=== PATIENT | male | born 1955 | race Caucasian/White ===

== ENCOUNTER 2018-04-30 18:27 | Observation (INO) | payer OTHER ==
[2018-04-30 19:21] LABS: BASOPHILS # (AUTO) 0.1 10^3/uL (0.0-0.1); BASOPHILS % (AUTO) 1.1 %; EOSINOPHILS # (AUTO) 0.1 10^3/uL (0.0-0.7); EOSINOPHILS % (AUTO) 0.7 %; HGB - HEMOGLOBIN 13.1 g/dL (14.0-18.0); LYMPHOCYTES # (AUTO) 0.9 10^3/uL (1.5-3.5); LYMPHOCYTES % (AUTO) 8.1 %; MEAN CORPUSCULAR HEMOGLOBIN 29.8 pg (27.0-31.0); MEAN CORPUSCULAR HGB CONC 33.2 g/dL (32.0-36.0); MEAN CORPUSCULAR VOLUME 89.8 fL (80.0-94.0); MONOCYTES # (AUTO) 0.6 10^3/uL (0.0-1.0); MONOCYTES % (AUTO) 5.6 %; NEUTROPHILS # (AUTO) 8.9 10^3/uL (1.5-6.6); NEUTROPHILS % (AUTO) 84.5 %; PLT - PLATELET COUNT 170 10^3/uL (130-450); RED CELL DISTRIBUTION WIDTH 14.4 % (12.0-15.0); WHITE BLOOD COUNT 10.6 x10^3/uL (4.8-10.8)
[2018-04-30 19:32] LABS: ALBUMIN 4.6 g/dL (3.2-5.5); ALBUMIN/GLOBULIN RATIO 1.7 (1.0-2.2); ALKALINE PHOSPHATASE 59 IU/L (42-121); ALT ALANINE AMINOTRANSFERASE 25 IU/L (10-60); AST ASPARTATE AMINOTRANSFERASE 31 IU/L (10-42); BILIRUBIN,TOTAL 0.6 mg/dL (0.2-1.0); BUN - BLOOD UREA NITROGEN 21 mg/dL (6-20); CALCIUM 9.4 mg/dL (8.5-10.3); CARBON DIOXIDE - CO2 29 mmol/L (21-32); CHLORIDE 99 mmol/L (101-111); GFR - MDRD 75 (>89); GLUCOSE 111 mg/dL (70-100); LIPASE 38 U/L (22-51); SODIUM 136 mmol/L (135-145); TOTAL PROTEIN 7.3 g/dL (6.7-8.2)
--- NOTE | 2018-04-30 19:50 | CT Report ---
Procedure Date: 04/30/2018 Accession Number: [id number] / [id number] Procedure: CT - Head W/O Stroke Protocol CPT Code: FULL RESULT: EXAM: CT HEAD EXAM DATE: 04/30/2018 07:42 PM. CLINICAL HISTORY: Sudden onset of confusion. COMPARISON: None. TECHNIQUE: Multiaxial CT images were obtained from the foramen magnum to the vertex. Reformats: Coronal. IV contrast: None. In accordance with CT protocol optimization, one or more of the following dose reduction techniques were utilized for this exam: automated exposure control, adjustment of mA and/or KV based on patient size, or use of iterative reconstructive technique. FINDINGS: Parenchyma: No intraparenchymal hemorrhage. No evidence of mass, midline shift, or CT findings of acute infarction. Hernandez-white differentiation is distinct. Extraaxial Spaces: Normal for age. No subdural or epidural collections identified. Ventricles: Normal in size and position. Sinuses and Orbits: Imaged paranasal sinuses, orbits, and mastoids show no significant abnormality. Bones: No evidence of fracture or calvarial defect. Other: None. IMPRESSION: No acute intracranial abnormality. RADIA The above findings were discussed with Kar Mariscal by Dr. Dom Jordan at 19:49 hrs on 04/30/18.
--- NOTE | 2018-04-30 20:48 | XRAY Report ---
Procedure Date: 04/30/2018 Accession Number: [id number] / [id number] Procedure: XR - Chest 2 View X-Ray CPT Code: 67294 FULL RESULT: EXAM: CHEST RADIOGRAPHY EXAM DATE: 04/30/2018 08:10 PM. CLINICAL HISTORY: Confusion. COMPARISON: 11/29/2014. TECHNIQUE: 2 views. FINDINGS: Lungs/Pleura: Lungs are hyperinflated. No focal consolidation, pleural effusion or pneumothorax. Mediastinum: Heart and mediastinal contours are unremarkable. Other: Chronic mild superior compression deformities of T11 and T12 are unchanged. IMPRESSION: No acute cardiopulmonary abnormality with findings suggestive of COPD as before. RADIA
[2018-04-30] MEDS ORDERED: SODIUM CHLORIDE 0.9% 1,000 ML IV ONE (20:53)
[2018-04-30] MEDS ORDERED: IOPAMIDOL-300 100 ML VIAL ONE (21:29)
[2018-04-30] MEDS ORDERED: IOPAMIDOL-300 100 ML VIAL IVP ONE (21:57)
[2018-04-30 22:07] LABS: MUDS CUTOFF CONCENTRATIONS CUTOFF CONC BELOW:
[2018-04-30 22:09] LABS: BILIRUBIN,URINE NEGATIVE (NEGATIVE); GLUCOSE, URINE (UA) NEGATIVE (NEGATIVE); KETONES,URINE (UA) NEGATIVE (NEGATIVE); LEUKOCYTE ESTERASE, URINE NEGATIVE (NEGATIVE); NITRITE,URINE NEGATIVE (NEGATIVE); OCCULT BLOOD,URINE NEGATIVE (NEGATIVE); PROTEIN,URINE NEGATIVE (NEGATIVE); UROBILINOGEN,URINE 0.2 (NORMAL) E.U./dL (NORMAL)
[2018-04-30 22:10] LABS: CLARITY,URINE HAZY (CLEAR)
[2018-04-30 22:22] LABS: AMORPHOUS SEDIMENT,UR Moderate /LPF; BACTERIA,URINE None Seen /HPF (None Seen); RBC,URINE None Seen /HPF (0-5); SQUAMOUS EPITHELIAL CELL,UR NONE SEEN (<= Few)
[2018-04-30 22:23] LABS: AMPHETAMINE SCREEN,URINE NEGATIVE (NEGATIVE); BENZODIAZEPINES SCREEN, URINE NEGATIVE (NEGATIVE); COCAINE SCREEN URINE NEGATIVE (NEGATIVE); METHADONE SCREEN, URINE NEGATIVE (NEGATIVE); METHAMPHETAMINES SCREEN, URINE NEGATIVE (NEGATIVE); OPIATE SCREEN, URINE NEGATIVE (NEGATIVE); OXYCODONE SCREEN, URINE NEGATIVE (NEGATIVE); PROPOXYPHENE SCREEN, URINE NEGATIVE (NEGATIVE); TRICYCLIC ANTIDEPRESSANT,URINE NEGATIVE (NEGATIVE)
[2018-04-30] MEDS ORDERED: ONDANSETRON ODT 4 MG TABLET TL PRN (22:54)
[2018-04-30] MEDS ORDERED: ACETAMINOPHEN 325 MG TABLET PO PRN (22:54)
[2018-04-30] MEDS ORDERED: oxyCODONE 5 MG TABLET PO PRN (22:54)
[2018-04-30] MEDS ORDERED: ONDANSETRON 4 MG/2 ML VIAL IVP PRN (22:54)
[2018-04-30] MEDS ORDERED: SODIUM CHLORIDE FLUSH 0.9% 10 ML SYRINGE IVP PRN (22:54)
--- NOTE | 2018-04-30 22:55 | ED Physician Documentation ---
History of Present Illness - Stated complaint Stated Complaint: CONFUSION - Chief complaint Chief Complaint: Neuro - History obtained from History obtained from: Patient, Family - History of Present Illness Timing: Today - Additonal information Additional information: 62-year-old male presents the emergency department for evaluation of loss of the short-term memory. The patient's symptoms started suddenly this afternoon and was noticed by his . The patient is not aware of his short-term memory issue. The patient's long-term memory is intact. The patient has difficulty remembering just a few minutes ago the events that occurred. The patient denies headache, neck pain, vision changes, focal motor weakness, sensory changes or any other focal neurologic symptoms. Symptoms are described as moderate. No other associated symptoms. No triggering factors. No relieving factors. Review of Systems Constitutional: denies: Fever, Chills Eyes: denies: Loss of vision Ears: denies: Ear pain, Tinnitus/ringing Nose: denies: Congestion Throat: denies: Sore throat Cardiac: denies: Chest pain / pressure Respiratory: denies: Dyspnea GI: denies: Abdominal Pain : denies: Dysuria Skin: denies: Rash Musculoskeletal: denies: Neck pain Neurologic: reports: Confused. denies: Generalized weakness, Focal weakness, Numbness, Difficulty speaking, Near syncope, Headache, Head injury Immunocompromised: denies: Chemotherapy PD PAST MEDICAL HISTORY - Past Medical History Past Medical History: No - Past Surgical History Past Surgical History: No - Present Medications Home Medications: Ambulatory Orders Medication Instructions Recorded Confirmed No Known Home Medications [No 04/30/18 04/30/18 Known Home Medications] - Allergies Allergies/Adverse Reactions: Allergies Allergy/AdvReac Type Severity Reaction Status Date / Time No Known Drug Allergies Allergy Verified 11/29/14 16:24 - Social History Does the pt smoke?: No Smoking Status: Never smoker Does the pt drink ETOH?: No - Immunizations Immunizations are current?: Yes PD ED PE NORMAL - General General: Alert and oriented X 3, No acute distress - HEENT HEENT: Atraumatic, PERRL, EOMI, Ears normal - Neck Neck: Supple, no meningeal sign - Cardiac Cardiac: RRR, Strong equal pulses - Respiratory Respiratory: No respiratory distress, Clear bilaterally - Abdomen Abdomen: Normal bowel sounds, Soft - Derm Derm: Normal color - Extremities Extremities: No deformity, Normal ROM s pain - Neuro Neuro: geodetic technician 2-12 intact, No motor deficit, No sensory deficit, Normal speech - Psych Psych: Normal mood PD ED PE EXPANDED - Neuro Neuro: Alert and Oriented X 3, Confused, Normal motor, Normal Sensation, Normal Speech, Normal reflexes, CNII-XII intact, PERRL, Normal gait, Normal finger nose , Normal speech, Other (The face is symmetric, digital commentator strength equal, negative pronator drift in the upper and lower extremities). No: Aphasia, Dysarthria Results - Vitals Vitals: Vital Signs - 24 hr 04/30/18 04/30/18 04/30/18 18:44 20:40 22:04 Temperature 36.5 C 36.7 C Heart Rate 72 65 76 Respiratory 16 14 16 Rate Blood Pressure 183/83 H 164/91 H 167/84 H O2 Saturation 100 98 98 Oxygen O2 Source Room air - EKG (time done) 19: 02 Rate: Rate (enter#) Rhythm: NSR Intervals: Normal NH, QRS normal QRS: Normal Ischemia: Normal ST segments - Labs Labs: Laboratory Tests 04/30/18 04/30/18 04/30/18 19:13 19:13 19:13 WBC 10.6 RBC 4.40 L Hgb 13.1 L Hct 39.5 L MCV 89.8 MCH 29.8 MCHC 33.2 RDW 14.4 Plt Count 170 MPV 9.0 Neut # (Auto) 8.9 H Lymph # (Auto) 0.[address] [place] # (Auto) 0.6 Eos # (Auto) 0.1 Baso # (Auto) 0.1 Absolute Nucleated RBC 0.01 Nucleated RBC % 0.1 Sodium 136 Potassium 4.0 Chloride 99 L Carbon Dioxide 29 Anion Gap 8.0 BUN 21 H Creatinine 1.0 Estimated GFR (MDRD) 75 L Glucose 111 H Calcium 9.4 Total Bilirubin 0.6 AST 31 ALT 25 Alkaline Phosphatase 59 Troponin I 0.07 Total Protein 7.3 Albumin 4.6 Globulin 2.7 Albumin/Globulin Ratio 1.7 Lipase 38 TSH Free T4 Urine Color Urine Clarity Urine pH Ur Specific Dickinson Urine Protein Urine Glucose (UA) Urine Ketones Urine Occult Blood Urine Nitrite Urine Bilirubin Urine Urobilinogen Ur Leukocyte Esterase Urine RBC Urine WBC Ur Squamous Epith Cells Amorphous Sediment Urine Bacteria Ur Microscopic Review Urine Culture Comments Urine Opiates Screen Ur Oxycodone Screen Urine Methadone Screen Ur Propoxyphene Screen Ur Barbiturates Screen Ur Tricyclics Screen Ur Phencyclidine Scrn Ur Amphetamine Screen U Methamphetamines Scrn U Benzodiazepines Scrn Urine Cocaine Screen U Cannabinoids Screen Ethyl Alcohol < 5.0 04/30/18 04/30/18 04/30/18 19:13 19:58 21:02 WBC RBC Hgb Hct MCV MCH MCHC RDW Plt Count MPV Neut # (Auto) Lymph # (Auto) [place] # (Auto) Eos # (Auto) Baso # (Auto) Absolute Nucleated RBC Nucleated RBC % Sodium Potassium Chloride Carbon Dioxide Anion Gap BUN Creatinine Estimated GFR (MDRD) Glucose Calcium Total Bilirubin AST ALT Alkaline Phosphatase Troponin I Total Protein Albumin Globulin Albumin/Globulin Ratio Lipase TSH 3.91 Free T4 0.89 Urine Color YELLOW Urine Clarity HAZY Urine pH 8.0 H Ur Specific Dickinson 1.015 Urine Protein NEGATIVE Urine Glucose (UA) NEGATIVE Urine Ketones NEGATIVE Urine Occult Blood NEGATIVE Urine Nitrite NEGATIVE Urine Bilirubin NEGATIVE Urine Urobilinogen 0.2 (NORMAL) Ur Leukocyte Esterase NEGATIVE Urine RBC None Seen Urine WBC 0-3 Ur Squamous Epith Cells NONE SEEN Amorphous Sediment Moderate Urine Bacteria None Seen Ur Microscopic Review INDICATED Urine Culture Comments NOT INDICATED Urine Opiates Screen NEGATIVE Ur Oxycodone Screen NEGATIVE Urine Methadone Screen NEGATIVE Ur Propoxyphene Screen NEGATIVE Ur Barbiturates Screen NEGATIVE Ur Tricyclics Screen NEGATIVE Ur Phencyclidine Scrn NEGATIVE Ur Amphetamine Screen NEGATIVE U Methamphetamines Scrn NEGATIVE U Benzodiazepines Scrn NEGATIVE Urine Cocaine Screen NEGATIVE U Cannabinoids Screen POSITIVE H Ethyl Alcohol - Rads (name of study) CTA head/neck: Radiology: Final report received (No acute findings on the CT angiogram or noncontrast CT) PD MEDICAL DECISION MAKING - ED course ED course: The patient's workup does not reveal any significant abnormality. I discussed the findings with the on-call neurologist from [facility] who agrees with the plan for admission to the hospital and MRI in the morning. She feels that this may represent transient global amnesia. The findings and plan were discussed with the patient and family who understand and agree to the plan. The case was discussed with the hospitalist Dr. Davenport who accepts the patient onto her service - Sepsis Event Vital Signs: Vital Signs - 24 hr 04/30/18 04/30/18 04/30/18 18:44 20:40 22:04 Temperature 36.5 C 36.7 C Heart Rate 72 65 76 Respiratory 16 14 16 Rate Blood Pressure 183/83 H 164/91 H 167/84 H O2 Saturation 100 98 98 Oxygen O2 Source Room air Departure - Departure Disposition: ED Place in Observation Clinical Impression: Confusion, Acute confusional state of cerebrovascular origin Condition: Good Discharge Date/Time: 04/30/18 23:47
--- NOTE | 2018-04-30 22:57 | CT Report ---
Procedure Date: 04/30/2018 Accession Number: [id number] / [id number] Procedure: CT - Neck Angio CPT Code: FULL RESULT: EXAM: CT ANGIOGRAM NECK EXAM DATE: 04/30/2018 10:01 PM. CLINICAL HISTORY: Acute confusion. COMPARISON: HEAD W/O STROKE PROTOCOL 04/30/2018. TECHNIQUE: Routine axial helical imaging was performed from the skull base through the aortic arch. Reconstructions: Routine multiplanar 3D MIP reconstructions. IV Contrast: ISOVUE 300 80mL. Evaluation of arterial stenosis is based on a NASCET method of measurement. In accordance with CT protocol optimization, one or more of the following dose reduction techniques were utilized for this exam: automated exposure control, adjustment of mA and/or KV based on patient size, or use of iterative reconstructive technique. FINDINGS: Aortic arch: There is scattered atherosclerotic calcification in the visualized aortic arch. The great vessels are patent without significant stenosis. Right Carotid: The common carotid, internal carotid, and external carotid arteries are patent. There is calcified plaque in the right carotid bulb and proximal ICA. This results in a mild stenosis of approximately 25% in the proximal ICA by NASCET criteria. There is no dissection. Left Carotid: The common carotid, internal carotid, and external carotid arteries are patent. Calcified plaque in the left carotid bulb and proximal ICA results in a stenosis of approximately 35% in the proximal ICA by NASCET criteria. There is no dissection. Vertebrals: Both vertebral arteries are patent. The left vertebral artery slightly dominant. There is no significant vertebral artery stenosis. No evidence of dissection. Other: The neck soft tissues and visualized lung apices are unremarkable. Moderate degenerative change is noted throughout the cervical spine. IMPRESSION: 1. Calcified plaque results in a 25% stenosis in the proximal right ICA and a 35% stenosis in the proximal left ICA by NASCET criteria. 2. There is no hemodynamically significant carotid artery stenosis. There is no evidence of carotid dissection. 3. Both vertebral arteries are patent without evidence of significant stenosis or dissection. RADIA
--- NOTE | 2018-04-30 23:11 | CT Report ---
Procedure Date: 04/30/2018 Accession Number: [id number] / [id number] Procedure: CT - Head Angio CPT Code: FULL RESULT: EXAM: CT ANGIOGRAM HEAD. CT SCAN OF THE HEAD WITHOUT AND WITH CONTRAST. EXAM DATE: 04/30/2018 09:59 PM CLINICAL HISTORY: Acute confusion. COMPARISON: CT head without contrast 04/30/2018, 19:39. TECHNIQUE: - CT Scan Head: Using a multidetector scanner, axial images were acquired from the foramen magnum to the skull vertex prior to and following contrast administration. - CT Angiogram: Using a multidetector scanner, high-resolution axial images were acquired from the skull base through vertex following rapid infusion of intravenous contrast. Reformats: Multiplanar MIP reformats were reconstructed. Nascet criteria used for stenosis measurement. IV Contrast: ISOVUE 300 80mL. In accordance with CT protocol optimization, one or more of the following dose reduction techniques were utilized for this exam: automated exposure control, adjustment of mA and/or KV based on patient size, or use of iterative reconstructive technique. FINDINGS: NON-CONTRAST HEAD: Parenchyma: No intraparenchymal hemorrhage. No evidence of mass, midline shift, or CT findings of infarction. Hernandez-white differentiation is distinct. Incidental prominent perivascular spaces are noted in the inferior basal ganglia bilaterally. Extraaxial Spaces: Normal for age. No subdural or epidural collections identified. Ventricles: Normal in size and position. Sinuses and orbits: Imaged paranasal sinuses, orbits, and mastoids show no significant abnormality. Bones: No evidence of fracture or calvarial defect. Other: None. POST-CONTRAST HEAD: No abnormal enhancement. CT ANGIOGRAM HEAD: Unremarkable. No evidence of large vessel occlusion or significant stenosis. No aneurysm or AVM is identified. The dural sinuses are patent. IMPRESSION: CT Head: No acute intracranial abnormality. Specifically, no evidence of acute infarct, hemorrhage, or mass lesion. No abnormal enhancement. CTA Head: Unremarkable CTA of intracranial circulation. No evidence of large vessel occlusion, significant stenosis, or aneurysm. RADIA
--- NOTE | 2018-05-01 00:04 | HISTORY & PHYSICAL EXAMINATION ---
Chief Complaint - Chief Complaint Chief Complaint: sudden memory loss today History of Present Illness - Admitted From Admitted From:: Home/ER - History Obtained From Records Reviewed: [facility] History obtained from: Patient, Dr. Pop and patient's Exam Limitations: patients memory - History of Present Illness HPI Comment/Other: He is a 62-year-old white male who really is quite healthy. He rarely sees his primary care provider who is with the family practice clinic at [facility] family [facility]. He does not have any major medical problems other than "a little bit of high blood pressure" in the past. But he does not take any medications for. He did have pneumonia 2 years ago, but again, was never hospitalized for. He denies any recent change in status. He boxes for exercise and last boxed over 2 weeks ago. Since then he denies any headache, syncope, gait ataxia. He denies fever, chills. Review of systems for cardiac, pulmonary, GI, are all negative. He works in daycare. And when he returned to home today, his noted that he was not remembering very much. He was also increasingly repetitive and asking the same questions over and over again. There is no ataxia, no slurred speech. Affect is stable other than his confusion. brought him to the emergency room and he was evaluated by emergency room physician. He is mildly hypertensive at 183/83 but is afebrile, pulse is normal , room air sat is normal. Other than his memory loss physical exam was normal. Head CT is negative for any acute event. Head and neck angiogram are also negative. He does have incidental prominent perivascular spaces noted in the inferior basal ganglia bilaterally. Dr. Kate consulted with [facility] tele-neurology. They have recommended the patient be placed in observation, and that we get an MRI in the morning. They feel he may have total global amnesia. That should resolve within a day. History - Past Medical History Cardiovascular: reports: Hypertension Respiratory: reports: None Neuro: reports: None Endocrine/Autoimmune: reports: None GI: reports: None : reports: None HEENT: reports: None Psych: reports: None Musculoskeletal: reports: None Derm: reports: None MRSA Hx?: No - Family & Social History Family History Comment/Other: Mother at age 83 of some type of abdominal infection. Prior to her she did have thyroid cancer. Dad at age 60. He drank himself to . He has 2 sisters, one full brother, and one half brother. His brother has mental issues. Otherwise his siblings do not have any problems with diabetes, cancer, heart attack, stroke, thyroid disease. He has 2 sons and 2 daughters. His oldest son has had a head injury and has cognitive deficits, otherwise his children are healthy. Living arrangement: At home Living Situation: With spouse/s.o. Social History Notes: He was born in [place]. Was in the [employer] for 20 years. Retired to [employer] [place]. He was a diagnosed alcoholic, but received therapy while in the [employer] and his last drink was in 1991. He has no other history of recreational substance abuse. He does do cannabis about 2 hours out of the day. 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 - Substance History Use: Uses substance without health or social issues: Cannabis Abuse: Recurrent use of substance despite neg consequences: NONE Dependence: Experiences withdrawal or developed tolerances: NONE - POLST Patient has POLST: No POLST Status: Full Code Meds/Allgy - Home Medications Home Medications: Ambulatory Orders Medication Instructions Recorded Confirmed No Known Home Medications [No 04/30/18 04/30/18 Known Home Medications] - Allergies Allergies/Adverse Reactions: Allergies Allergy/AdvReac Type Severity Reaction Status Date / Time No Known Drug Allergies Allergy Verified 11/29/14 16:24 Review of Systems - Constitutional Constitutional: denies: Fatigue, Fever, Chills, Malaise, Weakness, Poor appetite - Eyes Eyes: denies: Pain, Irritation, Field loss, Vision loss - Ears, Nose & Throat Ears, Nose & Throat: denies: Ear pain, Hearing aids, Tinnitus, Vertigo, Nasal obstruction, Nasal congestion, Postnasal drainage, Sore throat - Cardiovascular Cariovascular: denies: Irregular heart rate, Palpitations, Chest pain, Edema, Lightheadedness, Syncope - Respiratory Respiratory: denies: Cough, Sputum production, Wheezing, Snoring, SOB at rest, SOB with exertion - Gastrointestinal Gastrointestinal: denies: Abdominal pain, Abdominal distention, Change in bowel habits, Black stools, Bloody stools, Nausea, Vomiting - Genitourinary Genitourinary: denies: Dysuria, Frequency, Urgency, Hematuria, Flank pain - Musculoskeletal Musculoskeletal: denies: Muscle pain, Back pain, Muscle aches, Gout - Integumentary Integumentary: denies: Rash, Pruritis, Lesions, Dryness - Neurological Neurological: reports: Memory problems. denies: General weakness, Focal weakness, Headache, Dizziness, Numbness, Pre-existing deficit, Abnormal gait - Psychiatric Psychiatric: denies: Depression, Anxiety, Suicidal - Endocrine Endocrine: denies: Polyuria, Polydypsia, Polyphagia - Hematologic/Lymphatic Hematologic/Lymphatic: denies: Anemia, Bruising, Petechiae Exam - Vital Signs Reviewed Vital Signs: Yes - Physical Exam General Appearance: positive: No acute distress, Alert, Other (Slender, well- nourished well-developed white male with excellent lean body mass) Eyes Bilateral: positive: PERRL, EOMI ENT: positive: Pharynx nml Neck: positive: No JVD. negative: Stiff neck, Carotid bruit Respiratory: positive: Chest non-tender. negative: Wheezes, Rales, Rhonchi Cardiovascular: positive: Regular rate & rhythm. negative: Systolic murmur, Gallop/S4, Friction rub Peripheral Pulses: positive: 1+ Abdomen: positive: Non-tender, No organomegaly, Nml bowel sounds Skin: positive: No rash, Warm, Dry Extremities: positive: Non-tender, Full ROM, Nml appearance Neurologic/Psychiatric: positive: Oriented x3, CN's nml (2-12), Motor nml, Other (Cannot remember he's here. Keeps on asking why and what happened about every 5 minutes. Repetitive.). negative: Weakness, Sensory loss Conclusion/Plan - Problem List (1) Acute confusional state of cerebrovascular origin Conclusion/Plan: suspect total global amnesia. disease explained to and daughter. I also explained that this is not certain but an educated guess. MRI in am. monitor tele overnight. tox screen (+) for cannibus but nothing else. (2) HTN (hypertension) Conclusion/Plan: off and on problem for him. if this is a cerebrovascular event, permissive HTN consider adding norvasc in next 48 hours. Qualifiers: Hypertension type: essential hypertension Qualified Code(s): I10 - Essential (primary) hypertension - Lab Results Fish Bones: 04/30/18 19:13 04/30/18 19:13 - EKG Results EKG Interpreted Independently: No Core Measures - Anticipated LOS I expect patient to be DC'd or transferred within 96 hours.: Yes - DVT/VTE - Prophylaxis VTE/DVT Device ordered at admit?: Yes
[2018-05-01] MEDS ORDERED: SODIUM CHLORIDE FLUSH 0.9% 10 ML SYRINGE IVP SCH (01:00)
[2018-05-01 07:38] VITALS: BP 183/76
[2018-05-01 08:36] LABS: CHOLESTEROL 183 mg/dL; HDL CHOLESTEROL 62 mg/dL; LDL CHOLESTEROL,CALCULATED 106 mg/dL; LDL/HDL RATIO 1.7 (<3.6); VLDL CHOLESTEROL 15 mg/dL
[2018-05-01] MEDS ORDERED: POLYETHYLENE GLYCOL 3350 17 GM PACKET PO SCH (09:00)
--- NOTE | 2018-05-01 09:54 | MRI Report ---
Procedure Date: 05/01/2018 Accession Number: [id number] / [id number] Procedure: MRI - Brain W/O CPT Code: FULL RESULT: EXAM: MRI BRAIN WITHOUT CONTRAST EXAM DATE: 05/01/2018 09:04 AM. CLINICAL HISTORY: Sudden short-term memory loss. COMPARISON: None. TECHNIQUE: Multiplanar, multisequence T1-weighted and fluid-sensitive MR sequences of the brain were performed. Sequences optimized for routine evaluation. Other: None. IV Contrast: None. FINDINGS: Brain Volume: Normal for age. Parenchyma/Dura: No mass, acute infarct or hemorrhage. Incidental bilateral basal ganglia dilated perivascular spaces. Minimal chronic appearing cerebral white matter disease likely from mild chronic microangiopathy. Ventricles/Cisterns: No hydrocephalus. No abnormal extra-axial fluid collection or hemorrhage. Orbits: Symmetric and unremarkable. Sella Turcica: The pituitary gland, cavernous sinuses, suprasellar cistern and optic chiasm are unremarkable. IAC: Symmetric and unremarkable. Vasculature: Normal signal flow void is seen in the major arterial structures at the skull base. Sinuses: No acute appearing sinus disease. Bones: No focal pathologic appearing marrow signal changes. Other: None. IMPRESSION: No MRI evidence for acute intracranial abnormality. RADIA
--- NOTE | 2018-05-01 10:51 | Discharge Plan ---
Discharge Plan Disposition: 01 Home, Self Care Condition: Good Diet: Regular Activity Restrictions: No Restrictions Shower Restrictions: No Driving Restrictions: No Additional Instructions or Follow Up instructions: You presented to the emergency department with acute confusion and memory loss. You were found to have transient global amnesia and as expected you have had improvement in your symptoms and this episode appears to be resolving. You had a number of scans of your brain including a CT and an MRI which were all negative for any acute stroke. Your blood pressure was elevated during hospitalization but this can be expected in an episode of transient global amnesia. However we do recommend that you check your blood pressure at home and see a primary care physician for a routine physical exam so that they can determine whether you need to be on any blood pressure medications in the future. Your cholesterol appears to be in the normal range and you appear to be improving back to your norm. You are being discharged home in stable condition and if symptoms do return or you notice any other changes please do not hesitate to come back to the emergency department. No Smoking: If you smoke, Please STOP! Call for help.
--- NOTE | 2018-05-01 13:38 | DISCHARGE SUMMARY ---
Discharge Summary Admit Date: 04/30/18 Discharge Date: 05/01/18 Discharging Provider: Obed Rivas MD Code Status: Attempt Resuscitation Condition at Discharge: Good Discharge Disposition: 01 Home, Self Care - DIAGNOSES Admission Diagnoses: 1. Transient global amnesia 2. Hypertension Discharge Diagnoses with Status of Each Condition: 1. Transient global amnesia: Resolving 2. Hypertension: Guarded - HPI History of Present Illness: caio is a 62-year-old white male who really is quite healthy. He rarely sees his primary care provider who is with the family practice clinic at [facility]. He does not have any major medical problems other than "a little bit of high blood pressure" in the past. But he does not take any medications for. He did have pneumonia 2 years ago, but again, was never hospitalized for. He denies any recent change in status. He boxes for exercise and last boxed over 2 weeks ago. Since then he denies any headache, syncope, gait ataxia. He denies fever, chills. Review of systems for cardiac, pulmonary, GI, are all negative. He works in daycare. And when he returned to home today, his noted that he was not remembering very much. He was also increasingly repetitive and asking the same questions over and over again. There is no ataxia, no slurred speech. Affect is stable other than his confusion. brought him to the emergency room and he was evaluated by emergency room physician. He is mildly hypertensive at 183/83 but is afebrile, pulse is normal , room air sat is normal. Other than his memory loss physical exam was normal. Head CT is negative for any acute event. Head and neck angiogram are also negative. He does have incidental prominent perivascular spaces noted in the inferior basal ganglia bilaterally. Dr. Kate consulted with [facility] tele-neurology. They have recommended the patient be placed in observation, and that we get an MRI in the morning. They feel he may have total global amnesia. That should resolve within a day. - HOSPITAL COURSE Hospital Course: The patient was placed in observation and his symptoms resolved overnight. The patient could not remember parts of the day yesterday but was able to answer my questions and had memory of events from earlier in the day yesterday and knew why he was in the hospital and what was going on. According to the patient's he has almost back to his normal baseline. The patient's blood pressure did continue to run high while he was hospitalized and the patient was instructed to follow-up and establish care with a primary care physician. He was also instructed to take his blood pressure at home and keep a log and presented to his PCP when he sees him. The patient did undergo an MRI while he was hospitalized which showed no acute intracranial abnormality. The patient also had CT head along with a CT angiogram of the head and neck that were also negative. The patient did have a chest x-ray done as well which showed no acute cardiopulmonary abnormality. The patient had normal labs including a LDL of 106. The patient was discharged home in stable condition he did not have any new medication started but was instructed to establish care with a primary care physician. - ALLERGIES Allergies/Adverse Reactions: Allergies Allergy/AdvReac Type Severity Reaction Status Date / Time No Known Drug Allergies Allergy Verified 11/29/14 16:24 - MEDICATIONS Home Medications: Ambulatory Orders Medication Instructions Recorded Confirmed No Known Home Medications [No 04/30/18 04/30/18 Known Home Medications] - PHYSICAL EXAM AT DISCHARGE General Appearance: positive: No acute distress, Alert Eyes Bilateral: positive: Normal inspection, PERRL, EOMI, No lid inflammation, Conjunctivae nml, No scleral icterus ENT: positive: ENT inspection nml, Pharynx nml, No signs of dehydration. negative: Purulent nasal drainage, Pharyngeal erythema, Oral lesions Neck: positive: Nml inspection, Thyroid nml, No JVD, Trachea midline. negative : Thyromegaly, Lymphadenopathy (R), Lymphadenopathy (L), Stiff neck Respiratory: positive: Chest non-tender, No respiratory distress, Breath sounds nml. negative: Wheezes, Rales, Rhonchi Cardiovascular: positive: Regular rate & rhythm, No murmur, No gallop Peripheral Pulses: positive: 2+ Abdomen: positive: Non-tender, No organomegaly, Nml bowel sounds, No distention. negative: Guarding, Rebound, Hepatomegaly Back: positive: Nml inspection. negative: CVA tenderness (R), CVA tenderness (L ) Skin: positive: Color nml, No rash, Warm. negative: Cyanosis, Pallor, Skin rash Extremities: positive: Non-tender, Full ROM, Nml appearance, No pedal edema Neurologic/Psychiatric: positive: Oriented x3, CN's nml (2-12), Motor nml, Sensation nml, Mood/affect nml - LABS Result Diagrams: 04/30/18 19:13 04/30/18 19:13 Other Lab Results: Laboratory Results WBC 10.6 x10^3/uL (4.8-10.8) 04/30/18 19:13 RBC 4.40 10^6/uL (4.70-6.10) L 04/30/18 19:13 Hgb 13.1 g/dL (14.0-18.0) L 04/30/18 19:13 Hct 39.5 % (42.0-52.0) L 04/30/18 19:13 MCV 89.8 fL (80.0-94.0) 04/30/18 19:13 MCH 29.8 pg (27.0-31.0) 04/30/18 19:13 MCHC 33.2 g/dL (32.0-36.0) 04/30/18 19:13 RDW 14.4 % (12.0-15.0) 04/30/18 19:13 Plt Count 170 10^3/uL (130-450) 04/30/18 19:13 MPV 9.0 fL (7.4-11.4) 04/30/18 19:13 Neut # (Auto) 8.9 10^3/uL (1.5-6.6) H 04/30/18 19:13 Lymph # (Auto) 0.9 10^3/uL (1.5-3.5) L 04/30/18 19:13 Rowan # (Auto) 0.6 10^3/uL (0.0-1.0) 04/30/18 19:13 Eos # (Auto) 0.1 10^3/uL (0.0-0.7) 04/30/18 19:13 Baso # (Auto) 0.1 10^3/uL (0.0-0.1) 04/30/18 19:13 Absolute Nucleated RBC 0.01 x10^3/uL 04/30/18 19:13 Nucleated RBC % 0.1 /100WBC 04/30/18 19:13 Sodium 136 mmol/L (135-145) 04/30/18 19:13 Potassium 4.0 mmol/L (3.5-5.0) 04/30/18 19:13 Chloride 99 mmol/L (101-111) L 04/30/18 19:13 Carbon Dioxide 29 mmol/L (21-32) 04/30/18 19:13 Anion Gap 8.0 (6-13) 04/30/18 19:13 BUN 21 mg/dL (6-20) H 04/30/18 19:13 Creatinine 1.0 mg/dL (0.6-1.2) 04/30/18 19:13 Estimated GFR (MDRD) 75 (>89) L 04/30/18 19:13 Glucose 111 mg/dL (70-100) H 04/30/18 19:13 Calcium 9.4 mg/dL (8.5-10.3) 04/30/18 19:13 Total Bilirubin 0.6 mg/dL (0.2-1.0) 04/30/18 19:13 AST 31 IU/L (10-42) 04/30/18 19:13 ALT 25 IU/L (10-60) 04/30/18 19:13 Alkaline Phosphatase 59 IU/L (42-121) 04/30/18 19:13 Troponin I 0.07 ng/mL (<0.49) 04/30/18 19:13 Total Protein 7.3 g/dL (6.7-8.2) 04/30/18 19:13 Albumin 4.6 g/dL (3.2-5.5) 04/30/18 19:13 Globulin 2.7 g/dL (2.1-4.2) 04/30/18 19:13 Albumin/Globulin Ratio 1.7 (1.0-2.2) 04/30/18 19:13 Triglycerides 73 mg/dL (-149) 05/01/18 08:14 Cholesterol 183 mg/dL (-199) 05/01/18 08:14 LDL Cholesterol, Calc 106 mg/dL (-129) 05/01/18 08:14 VLDL Cholesterol 15 mg/dL 05/01/18 08:14 HDL Cholesterol 62 mg/dL (60-) 05/01/18 08:14 LDL/HDL Ratio 1.7 (<3.6) 05/01/18 08:14 Cholesterol/HDL Ratio 3.0 (<5.0) 05/01/18 08:14 Lipase 38 U/L (22-51) 04/30/18 19:13 TSH 3.91 uIU/mL (0.34-5.60) 04/30/18 19:13 Free T4 0.89 ng/dL (0.58-1.64) 04/30/18 19:58 Urine Color YELLOW 04/30/18 21:02 Urine Clarity HAZY (CLEAR) 04/30/18 21:02 Urine pH 8.0 PH (5.0-7.5) H 04/30/18 21:02 Ur Specific [place] 1.015 (1.002-1.030) 04/30/18 21:02 Urine Protein NEGATIVE mg/dL (NEGATIVE) 04/30/18 21:02 Urine Glucose (UA) NEGATIVE mg/dL (NEGATIVE) 04/30/18 21: Urine Ketones NEGATIVE mg/dL (NEGATIVE) 04/30/18 21:02 Urine Occult Blood NEGATIVE (NEGATIVE) 04/30/18 21: Urine Nitrite NEGATIVE (NEGATIVE) 04/30/18 21: Urine Bilirubin NEGATIVE (NEGATIVE) 04/30/18 21:02 Urine Urobilinogen 0.2 (NORMAL) E.U./dL (NORMAL) 04/30/18 21:02 Ur Leukocyte Esterase NEGATIVE (NEGATIVE) 04/30/18 21:02 Urine RBC None Seen /HPF (0-5) 04/30/18 21:02 Urine WBC 0-3 /HPF (0-3) 04/30/18 21:02 Ur Squamous Epith Cells NONE SEEN (<= Few) 04/30/18 21:02 Amorphous Sediment Moderate /LPF 04/30/18 21:02 Urine Bacteria None Seen /HPF (None Seen) 04/30/18 21:02 Ur Microscopic Review INDICATED 04/30/18 21:02 Urine Culture Comments NOT INDICATED 04/30/18 21:02 Urine Opiates Screen NEGATIVE (NEGATIVE) 04/30/18 21:02 Ur Oxycodone Screen NEGATIVE (NEGATIVE) 04/30/18 21:02 Urine Methadone Screen NEGATIVE (NEGATIVE) 04/30/18 21:02 Ur Propoxyphene Screen NEGATIVE (NEGATIVE) 04/30/18 21:02 Ur Barbiturates Screen NEGATIVE (NEGATIVE) 04/30/18 21:02 Ur Tricyclics Screen NEGATIVE (NEGATIVE) 04/30/18 21:02 Ur Phencyclidine Scrn NEGATIVE (NEGATIVE) 04/30/18 21:02 Ur Amphetamine Screen NEGATIVE (NEGATIVE) 04/30/18 21:02 U Methamphetamines Scrn NEGATIVE (NEGATIVE) 04/30/18 21:02 U Benzodiazepines Scrn NEGATIVE (NEGATIVE) 04/30/18 21:02 Urine Cocaine Screen NEGATIVE (NEGATIVE) 04/30/18 21:02 U Cannabinoids Screen POSITIVE (NEGATIVE) H 04/30/18 21:02 Ethyl Alcohol < 5.0 mg/dL 04/30/18 19:13 - DIAGNOSTIC IMAGING Diagnostic Imaging Results: Final report reviewed Diagnostic Imaging Results Comments: EXAM: MRI/BRWO ([id number]) Procedure Date: 05/01/2018 Accession Number: [id number] / [id number] Procedure: MRI - Brain W/O CPT Code: FULL RESULT: EXAM: MRI BRAIN WITHOUT CONTRAST EXAM DATE: 05/01/2018 09:04 AM. CLINICAL HISTORY: Sudden short-term memory loss. COMPARISON: None. TECHNIQUE: Multiplanar, multisequence T1-weighted and fluid-sensitive MR sequences of the brain were performed. Sequences optimized for routine evaluation. Other: None. IV Contrast: None. FINDINGS: Brain Volume: Normal for age. Parenchyma/Dura: No mass, acute infarct or hemorrhage. Incidental bilateral basal ganglia dilated perivascular spaces. Minimal chronic appearing cerebral white matter disease likely from mild chronic microangiopathy. Ventricles/Cisterns: No hydrocephalus. No abnormal extra-axial fluid collection or hemorrhage. Orbits: Symmetric and unremarkable. Sella Turcica: The pituitary gland, cavernous sinuses, suprasellar cistern and optic chiasm are unremarkable. IAC: Symmetric and unremarkable. Vasculature: Normal signal flow void is seen in the major arterial structures at the skull base. Sinuses: No acute appearing sinus disease. Bones: No focal pathologic appearing marrow signal changes. Other: None. IMPRESSION: No MRI evidence for acute intracranial abnormality. EXAM: XR/CXR2VW ([id number]) Procedure Date: 04/30/2018 Accession Number: [id number] / [id number] Procedure: XR - Chest 2 View X-Ray CPT Code: 67190 FULL RESULT: EXAM: CHEST RADIOGRAPHY EXAM DATE: 04/30/2018 08:10 PM. CLINICAL HISTORY: Confusion. COMPARISON: 11/29/2014. TECHNIQUE: 2 views. FINDINGS: Lungs/Pleura: Lungs are hyperinflated. No focal consolidation, pleural effusion or pneumothorax. Mediastinum: Heart and mediastinal contours are unremarkable. Other: Chronic mild superior compression deformities of T11 and T12 are unchanged. IMPRESSION: No acute cardiopulmonary abnormality with findings suggestive of COPD as before. EXAM: CT/NECKANG ([id number]) Procedure Date: 04/30/2018 Accession Number: [id number] / [id number] Procedure: CT - Neck Angio CPT Code: FULL RESULT: EXAM: CT ANGIOGRAM NECK EXAM DATE: 04/30/2018 10:01 PM. CLINICAL HISTORY: Acute confusion. COMPARISON: HEAD W/O STROKE PROTOCOL 04/30/2018. TECHNIQUE: Routine axial helical imaging was performed from the skull base through the aortic arch. Reconstructions: Routine multiplanar 3D MIP reconstructions. IV Contrast: ISOVUE 300 80mL. Evaluation of arterial stenosis is based on a NASCET method of measurement. In accordance with CT protocol optimization, one or more of the following dose reduction techniques were utilized for this exam: automated exposure control, adjustment of mA and/or KV based on patient size, or use of iterative reconstructive technique. FINDINGS: Aortic arch: There is scattered atherosclerotic calcification in the visualized aortic arch. The great vessels are patent without significant stenosis. Right Carotid: The common carotid, internal carotid, and external carotid arteries are patent. There is calcified plaque in the right carotid bulb and proximal ICA. This results in a mild stenosis of approximately 25% in the proximal ICA by NASCET criteria. There is no dissection. Left Carotid: The common carotid, internal carotid, and external carotid arteries are patent. Calcified plaque in the left carotid bulb and proximal ICA results in a stenosis of approximately 35% in the proximal ICA by NASCET criteria. There is no dissection. Vertebrals: Both vertebral arteries are patent. The left vertebral artery slightly dominant. There is no significant vertebral artery stenosis. No evidence of dissection. Other: The neck soft tissues and visualized lung apices are unremarkable. Moderate degenerative change is noted throughout the cervical spine. IMPRESSION: 1. Calcified plaque results in a 25% stenosis in the proximal right ICA and a 35% stenosis in the proximal left ICA by NASCET criteria. 2. There is no hemodynamically significant carotid artery stenosis. There is no evidence of carotid dissection. 3. Both vertebral arteries are patent without evidence of significant stenosis or dissection. EXAM: CT/HEADANG ([id number]) Procedure Date: 04/30/2018 Accession Number: [id number] / [id number] Procedure: CT - Head Angio CPT Code: FULL RESULT: EXAM: CT ANGIOGRAM HEAD. CT SCAN OF THE HEAD WITHOUT AND WITH CONTRAST. EXAM DATE: 04/30/2018 09:59 PM CLINICAL HISTORY: Acute confusion. COMPARISON: CT head without contrast 04/30/2018, 19:39. TECHNIQUE: - CT Scan Head: Using a multidetector scanner, axial images were acquired from the foramen magnum to the skull vertex prior to and following contrast administration. - CT Angiogram: Using a multidetector scanner, high-resolution axial images were acquired from the skull base through vertex following rapid infusion of intravenous contrast. Reformats: Multiplanar MIP reformats were reconstructed. Nascet criteria used for stenosis measurement. IV Contrast: ISOVUE 300 80mL. In accordance with CT protocol optimization, one or more of the following dose reduction techniques were utilized for this exam: automated exposure control, adjustment of mA and/or KV based on patient size, or use of iterative reconstructive technique. FINDINGS: NON-CONTRAST HEAD: Parenchyma: No intraparenchymal hemorrhage. No evidence of mass, midline shift, or CT findings of infarction. Hernandez-white differentiation is distinct. Incidental prominent perivascular spaces are noted in the inferior basal ganglia bilaterally. Extraaxial Spaces: Normal for age. No subdural or epidural collections identified. Ventricles: Normal in size and position. Sinuses and orbits: Imaged paranasal sinuses, orbits, and mastoids show no significant abnormality. Bones: No evidence of fracture or calvarial defect. Other: None. POST-CONTRAST HEAD: No abnormal enhancement. CT ANGIOGRAM HEAD: Unremarkable. No evidence of large vessel occlusion or significant stenosis. No aneurysm or AVM is identified. The dural sinuses are patent. IMPRESSION: CT Head: No acute intracranial abnormality. Specifically, no evidence of acute infarct, hemorrhage, or mass lesion. No abnormal enhancement. CTA Head: Unremarkable CTA of intracranial circulation. No evidence of large vessel occlusion, significant stenosis, or aneurysm. - FOLLOW UP Follow Up: Patient was admitted with transient global amnesia and had nearly complete resolution of symptoms prior to discharge. Patient underwent imaging with CT head, CT angios head and neck and MRI which were all negative. Patient's LDL was normal and remainder of lab work was within normal limits. Patient was discharged home in stable condition but will follow up and establish care with a primary care physician in regards to his elevated blood pressure. - TIME SPENT Time Spent in Discharge (Minutes): 35
== END 2018-05-01 11:12 | disposition home or self-care (01) ==
LOC: ED 18:27 → MS2 22:54
PROVIDERS: ADMIT Specialist; ATTEND Internal Medicine
DX: G45.4 Transient global amnesia (principal); I10 Essential (primary) hypertension
CPT/HCPCS: 36415; 70450; 70496; 70498; 70551; 71046; 80053; 80061; 80306; 80320; 81001; 83690; 84439; 84443; 84484; 85025; 93005; 96360; 99284; G0378; Q9967; 80307; 80329; 81003; 83721; 83735; 87086

== ENCOUNTER 2020-11-28 12:00 | Outpatient (CLI) | payer OTHER | END 2020-11-28 12:01 | disposition critical access hospital (66) | LOC: EMS 12:00 | PROVIDERS: ATTEND Emergency Medicine | DX: I46.9 Cardiac arrest, cause unspecified (principal) | CPT/HCPCS: A0425; A0433 ==

== ENCOUNTER 2020-11-28 12:12 | Emergency (ER) | payer OTHER ==
--- NOTE | 2020-11-28 12:17 | ED Physician Documentation ---
PD HPI CPR - Stated complaint Stated Complaint: CPR - History obtained from History obtained from: EMS - Additional information Additional information: 65-year-old gentleman brought in by EMS. Reportedly healthy with no meds and no allergies. Although a review of the chart prior to arrival shows that a couple of years ago he was admitted for transient global amnesia and probably had untreated hypertension. He was out in the yard digging a hole and clutched his chest and collapsed. There was no bystander CPR for the the 10 minutes until EMS responded. An AED was placed and the rhythm was not shockable. CPR was begun and on arrival has probably had 30+ minutes of CPR with mostly asystole versus agonal wide-complex rhythm. On arrival he has received 6 doses of epinephrine and 75 Milliequivalents of sodium bicarbonate. Review of Systems Unable to obtain: Unresponsive, Intubated PD PAST MEDICAL HISTORY - Past Medical History Cardiovascular: Hypertension Respiratory: None Neuro: None Endocrine/Autoimmune: None GI: None : None HEENT: None Psych: None Musculoskeletal: None Derm: None - Past Surgical History Past Surgical History: No - Present Medications Home Medications: Ambulatory Orders Medication Instructions Recorded Confirmed No Known Home Medications 04/30/18 04/30/18 - Allergies Allergies/Adverse Reactions: Allergies Allergy/AdvReac Type Severity Reaction Status Date / Time No Known Drug Allergies Allergy Verified 11/29/14 16:24 - Social History Does the pt smoke?: No Smoking Status: Never smoker Does the pt drink ETOH?: No - Immunizations Immunizations are current?: Yes - POLST Patient has POLST: No POLST Status: Full Code PD ED PE NORMAL - Vitals Vital signs reviewed: Yes - General General: Other (He is intubated with bilateral breath sounds. There is no pulse.) - Respiratory Respiratory: Clear bilaterally - Derm Derm: No rash - Neuro Eye Opening: None Motor: None Verbal: None GCS Score: 3 Results - Vitals Vitals: Oxygen O2 Source Ambu bag PD MEDICAL DECISION MAKING - ED course ED course: On arrival this gentleman has been down for about 40 minutes, 10 of which was without any CPR. There is really no sign of life. He has an agonal wide- complex bradycardic rhythm with no associated pulse or cardiac motion and the co de was called at 1214. Departure - Departure Disposition: 20 Clinical Impression: Sudden cardiac
== END 2020-11-28 14:12 | disposition expired ==
LOC: EDUNIT# → ED 12:12
DX: I46.9 Cardiac arrest, cause unspecified (principal); I10 Essential (primary) hypertension
CPT/HCPCS: 99281; 99285